=== PATIENT | male | born 1955 | race Caucasian/White ===

== ENCOUNTER 2018-12-03 08:34 | Observation (INO) ==
[2018-12-03] MEDS ORDERED: ASPIRIN PO ONE (08:50)
--- NOTE | 2018-12-03 09:04 | EKG Report ---
Test Performed on : 12/03/2018 08:44:19 AM Test Reason : CP Blood Pressure : / mmHG Vent. Rate : 064 BPM Atrial Rate : 064 BPM P-R Int : 144 ms QRS Dur : 092 ms QT Int : 400 ms P-R-T Axes : 038 051 095 degrees QTc Int : 412 ms Normal sinus rhythm. Normal ECG No previous ECGs available Unconfirmed Result
[2018-12-03 09:08] LABS: BASO# 0.03 X1000 (0.0-0.2); BASO% 0.4 % (0.0-0.8); EOS# 0.24 X1000 (0.0-0.7); EOS% 3.4 % (0.0-10.0); HEMATOCRIT 46.5 % (42.0-52.0); HEMOGLOBIN 15.8 g/dL (14.0-18.0); LYMPH# 2.01 X1000 (1.2-3.4); LYMPH% 28.3 % (20.5-51.1); MCH 30.5 PG (27-31); MCV 89.8 FL (81-99); MONO# 0.69 X1000 (0.11-0.59); MONO% 9.7 % (1.7-9.3); NEUT# 4.13 X1000 (1.4-6.5); NEUT% 58.2 % (42.2-75.2); PLT 291 X1000 (130-400); RBC 5.18 XMIL (4.7-6.1); RDW 13.6 % (11.5-14.5)
--- NOTE | 2018-12-03 09:20 | Diag Imaging Result Doc PS360 ---
EXAM: CHEST-2 VIEWS HISTORY: CP TECHNIQUE: Chest two views COMPARISON: None. FINDINGS: The lungs are well expanded. The heart is not enlarged. The vessels are not distended. There are no infiltrates. No pleural effusions. IMPRESSION: No acute abnormality. Electronically signed by Jg Calderon 12/03/2018 9:17 AM
[2018-12-03 09:22] LABS: AGAP 14; ALB/GLOB RATIO 1.6; ALBUMIN 4.6 g/dL (3.5-5.0); ALKALINE PHOSPHATASE 71 U/L (32-122); BUN 18 mg/dL (8-22); CALCIUM 9.7 mg/dL (8.8-10.2); CHLORIDE 104 mmol/L (98-107); CK PROFILE 113 U/L (24-204); COSMO 287; CREATININE 0.9 mg/dL (0.7-1.2); ESTIMATED GFR > 60; GLUCOSE 97 mg/dL (70-104); GOT 26 U/L (10-34); GPT 24 U/L (10-44); POTASSIUM 4.4 mmol/L (3.5-5.1); SODIUM 143 mmol/L (136-145); TCO2 25 mmol/L (25-35); TOTAL BILIRUBIN 0.23 mg/dL (0.20-1.00); TOTAL PROTEIN 7.5 g/dL (6.3-8.3)
[2018-12-03 09:35] LABS: INR 0.83; PROTIME 12.1 Seconds (11.0-16.0); PTT 33.9 Seconds (22.3-41.8)
[2018-12-03] MEDS ORDERED: MORPHINE IV ONE (09:54)
[2018-12-03] MEDS ORDERED: ZOFRAN IV ONE (09:54)
--- NOTE | 2018-12-03 09:54 | PROVIDER DOCUMENTATION ---
HPI-Chest Pain - General Chief Complaint: Chest Pain Stated Complaint: CHEST PAIN,LT ARM TINGLING,FILLING FAINT Time Seen by Provider: 12/03/18 09:47 Allergies/Adverse Reactions: Patient Allergies Allergy/AdvReac Type Severity Reaction Status Date / Time ibuprofen Allergy ANAPHYLAXIS Verified 12/03/18 09:44 Home Medications: Home Medication List Medication Instructions Recorded Confirmed Last Taken Type No Home Medications 11/02/13 12/03/18 Unknown History - History of Present Illness-CP Nature of Presenting Problem: 62 y/o WM c/o intermittent substernal CP for the past 2 weeks that returned today and became much worse. Pt states that he has had nausea, SOB, and that pain radiates to both arms and through to his back. Location: reports: substernal Chest Pain Radiation: reports: arms, back Quality of Pain: reports: aching Severity in ED: mild Onset/Duration: other (intermittent for the past 2 weeks) Timing: still present Context/Activities at Onset: reports: light activity Modifying Factors: improves with: nothing Associated Symptoms: reports: dizziness, nausea, shortness of breath (and light headed) Nitro Today/Relief: no nitro taken today Aspirin Treatment Today: provided at home Prior Chest Pain/Cardiac Workup: reports: no prior cardiac workup Similar Symptoms Previously?: Yes Recently Seen Here or By Another Healthcare Provider: No Review of Systems - Adult - REVIEW OF SYSTEMS - ADULT Constitutional: reports: no symptoms reported, see HPI Eyes: reports: no symptoms reported, see HPI Ears, Nose, Mouth & Throat: reports: no symptoms reported, see HPI Cardiovascular: reports: see HPI, chest pain Respiratory: reports: see HPI, shortness of breath Gastrointestinal: reports: no symptoms reported, see HPI Genitourinary: reports: no symptoms reported, see HPI Musculoskeletal: reports: no symptoms reported, see HPI Integumentary: reports: no symptoms reported, see HPI Neurological: reports: see HPI, dizziness/vertigo Psychiatric: reports: no symptoms reported, see HPI Endocrine: reports: no symptoms reported, see HPI Hematologic/Lymphatic: reports: no symptoms reported, see HPI Allergic/Immunologic: reports: no symptoms reported, see HPI All Other Systems: Reviewed and Negative Past History - Adult - PAST MEDICAL HISTORY-ADULT Review of Records: reports: Nursing Assessment Review, Medications Reviewed, Social history reviewed & non-contributory. Physical Exam-General - PHYSICAL EXAM-ADULT Initial Vital Signs Reviewed: Yes - CONSTITUTIONAL General Appearance: appears well, alert, no apparent distress - EYES Eyes: PERRL/EOMI - HEAD, EARS, NOSE, MOUTH & THROAT HENMT: normocephalic/atraumatic, moist mucous membranes - NECK Neck: non-tender, full range of motion, supple, normal inspection - RESPIRATORY Respiratory: chest non-tender, lungs clear, normal breath sounds, no pleuratic chest pain, no respiratory distress, no accessory muscle use - CARDIOVASCULAR Cardiovascular: normal peripheral pulses, regular rate, rhythm, no edema, no gallop, no JVD, no murmur - GASTROINTESTINAL (ABDOMEN) Abdominal Exam: normal bowel sounds, non tender, soft, no organomegaly, no pulsatile mass - LYMPHATIC Lymphatic: no adenopathy - MUSCULOSKELETAL Back Exam: normal inspection, no CVA tenderness, no vertebral tenderness Extremity: normal range of motion, non-tender, normal gait, normal inspection, no pedal edema, no calf tenderness, normal capillary refill - SKIN Integumentary: normal color, normal turgor - NEUROLOGIC Neurologic: junior designer II-XII nml as tested, grossly normal, no motor/sensory deficits - PSYCHIATRIC Psych/Mental Status: normal mood/affect, normal thought content, normal thought process, oriented x 3 - HEART Score HEART Score: History: Slightly Suspicious HEART Score: ECG: Normal HEART Score: Age: 45-65 Years HEART Score: Risk Factors for Atherosclerotic Disease: 1 or 2 Risk Factors HEART Score: Troponin: < or = Normal Limit Total HEART Score:: 2 Progress - PLAN OF CARE/RESULTS Progress/Plan/Lab Results: Vital Signs - 8 hr 12/03/18 08:44 12/03/18 09:39 12/03/18 10:07 Temperature 98.0 F Pulse Rate 73 63 54 L Respiratory Rate 18 18 17 Blood Pressure 146/91 153/103 157/90 O2 Sat by Pulse Oximetry 98 98 97 12/03/18 10:10 12/03/18 10:20 12/03/18 10:30 Temperature Pulse Rate 50 L 55 L 58 L Respiratory Rate 14 13 18 Blood Pressure O2 Sat by Pulse Oximetry 98 95 97 12/03/18 10:33 12/03/18 10:40 12/03/18 10:50 Temperature Pulse Rate 54 L 54 L 55 L Respiratory Rate 16 15 18 Blood Pressure 115/69 O2 Sat by Pulse Oximetry 96 96 97 12/03/18 11:03 12/03/18 11:33 12/03/18 11:49 Temperature Pulse Rate 51 L 57 L 53 L Respiratory Rate 14 20 17 Blood Pressure 107/66 116/67 114/78 O2 Sat by Pulse Oximetry 97 97 96 12/03/18 11:52 Temperature 97.9 F Pulse Rate Respiratory Rate Blood Pressure O2 Sat by Pulse Oximetry Laboratory Results - last 24 hr 12/03/18 12/03/18 12/03/18 08:50 08:50 08:50 WBC 7.10 RBC 5.18 Hgb 15.8 Hct 46.5 MCV 89.8 MCH 30.5 MCHC 34.0 RDW Std Deviation 13.6 Plt Count 291 MPV 9.0 Immature Gran % (Auto) 0.0 Neut % (Auto) 58.2 Lymph % (Auto) 28.3 Barber % (Auto) 9.7 H Eos % (Auto) 3.4 Baso % (Auto) 0.4 Immature Gran # (Auto) 0.00 Neut # (Auto) 4.13 Lymph # (Auto) 2.01 Barber # (Auto) 0.69 H Eos # (Auto) 0.24 Baso # (Auto) 0.03 PT INR PTT (Actin FS) D-Dimer, Quantitative Sodium 143 Potassium 4.4 Chloride 104 Carbon Dioxide 25 Anion Gap 14 BUN 18 Creatinine 0.9 Estimated GFR/1.73 m2 > 60 BUN/Creatinine Ratio 20 Glucose 97 Calculated Osmolality 287 Calcium 9.7 Total Bilirubin 0.23 AST 26 ALT 24 Alkaline Phosphatase 71 Creatine Kinase 113 Troponin T Auy-A-Gfedzbbvxjp Pept 157 Total Protein 7.5 Albumin 4.6 Globulin 2.9 Albumin/Globulin Ratio 1.6 12/03/18 12/03/18 12/03/18 08:50 08:50 08:50 WBC RBC Hgb Hct MCV MCH MCHC RDW Std Deviation Plt Count MPV Immature Gran % (Auto) Neut % (Auto) Lymph % (Auto) Barber % (Auto) Eos % (Auto) Baso % (Auto) Immature Gran # (Auto) Neut # (Auto) Lymph # (Auto) Barber # (Auto) Eos # (Auto) Baso # (Auto) PT 12.1 INR 0.83 PTT (Actin FS) 33.9 D-Dimer, Quantitative < 0.27 Sodium Potassium Chloride Carbon Dioxide Anion Gap BUN Creatinine Estimated GFR/1.73 m2 BUN/Creatinine Ratio Glucose Calculated Osmolality Calcium Total Bilirubin AST ALT Alkaline Phosphatase Creatine Kinase Troponin T < 0.010 Xdz-N-Lmtjscgmlah Pept Total Protein Albumin Globulin Albumin/Globulin Ratio Orders Category Date Time Status Cardiac Monitoring DIRECTED Care 12/03/18 08:50 Active Oxygen Therapy- ED Nursing DIRECTED Care 12/03/18 08:50 Active Saline Loc NOW Care 12/03/18 08:50 Active CHEST-2 VIEWS [RAD] Stat Exams 12/03/18 08:50 Completed CBC WITH ELECTRONIC DIFF [HEME] Stat Lab 12/03/18 08:50 Completed CK PROFILE [SP CHEM] Stat Lab 12/03/18 08:50 Completed COMPREHENSIVE METABOLIC PANEL [CHEM] Stat Lab 12/03/18 08:50 Completed D-DIMER [COAG] Stat Lab 12/03/18 08:50 Completed PRO B-NATRIURETIC PEPTIDE Stat Lab 12/03/18 08:50 Completed PROTIME WITH INR [COAG] Stat Lab 12/03/18 08:50 Completed PTT [COAG] Stat Lab 12/03/18 08:50 Completed TROPONIN T Stat Lab 12/03/18 08:50 Completed URINALYSIS [URINALYSIS] Stat Lab 12/03/18 09:47 Uncollected Aspirin Med 12/03/18 08:50 Discontinued 325 mg PO NOW ONE Morphine Med 12/03/18 09:54 Discontinued 2 mg IV NOW ONE Ondansetron [Zofran] Med 12/03/18 09:54 Discontinued 4 mg IV NOW ONE CP/SOB/Palp >45 yrs of Age Stat Oth 12/03/18 08:50 Ordered EKG [EKG] Stat Ther 12/03/18 08:50 Draft EKG [EKG] Stat Ther 12/03/18 09:48 Ordered Result Diagrams: 12/03/18 08:50 12/03/18 08:50 - CONSULTS/PCP/HOSPITALIST Notification #1 *Consult/PCP/Hospitalist*: Rosaura antoine Hospitalist Time Discussed: 11:53 Consult Disposition: Will see in ED, Admit Departure - Departure Date of Disposition Decision: 12/03/18 Time of Disposition Decision: 11:53 DIAGNOSIS: Chest pain, Elevated blood pressure reading Disposition: ADMITTED INPATIENT 09 Certified Medical Emergency: Emergent Condition: Fair Referrals and Follow-Ups: Quincy De La Paz [Primary Care Provider] - - Critical Care Note This patient required my direct & personal management of CC.: No Attestation - Physician/ DUNAE Attestation Patient care was provided by Advanced Practice Provider:: No The physician spent face to face time with patient:: Yes Advanced Practice Provider documentation review:: Supervising physician onsite and consulted in the evaluation and care of this patient. The physician did have a face to face encounter with the patient.
--- NOTE | 2018-12-03 10:52 | ED EKG INTERP ---
This chart was entered by Dunia Zayas Scribe, acting as scribe for Luis Armando Grimaldo MD. EKG Interpretation - EKG Time of EKG reading by physician:: 08:44 EKG Read and Signed by:: Luis Armando Grimaldo EKG Interpretation (*Must complete 3 of following elements*): Normal Rate: 64 Rhythm: NSR [place]: normal QRS: normal NC Interval: normal ST Wave: normal Attestation - Physician/ DUANE Attestation Patient care was provided by Advanced Practice Provider:: No The physician spent face to face time with patient:: Yes Advanced Practice Provider documentation review:: Supervising physician onsite and consulted in the evaluation and care of this patient. The physician did have a face to face encounter with the patient. This chart was documented by the indicated scribe, (Dunia Zayas Scribe) and accurately reflects the services I performed and decisions made by me, Luis Armando Grimaldo MD, as attested by the provider's signature.
[2018-12-03] MEDS ORDERED: TYLENOL PO PRN (12:15)
[2018-12-03] MEDS ORDERED: ZOFRAN IV PRN (12:15)
[2018-12-03 13:56] LABS: URINE SOURCE VOIDED
[2018-12-03 14:00] LABS: BILIRUBIN URINE NEGATIVE (NEGATIVE); BLOOD URINE NEGATIVE (NEGATIVE); COLOR YELLOW; GLUCOSE URINE NEGATIVE (NEGATIVE); KETONE URINE NEGATIVE (NEGATIVE); LEUKOCYTES URINE NEGATIVE (NEGATIVE); NITRITE URINE NEGATIVE (NEGATIVE); PROTEIN URINE TRACE mg/dL (NEGATIVE); SP GRAVITY URINE 1.034; TURBIDITY URINE CLEAR (CLEAR); UR EPITHELIAL CELLS <10 /HPF (<10); URINE BACTERIA NEGATIVE /HPF; URINE RBC <10 /HPF (<10); URINE WBC <10 /HPF (<10); UROBILINOGEN URINE NORMAL (NORMAL)
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
--- NOTE | 2018-12-03 16:45 | ECHO REPORT ---
ORDER DATE: 12/03/2018 INTERPRETING PHYSICIAN: Tez Cervantes MD ECHOCARDIOGRAPHIC MEASUREMENTS: 1. Interventricular septum 1.0. 2. Left ventricular posterior wall 1.0. 3. Diastolic diameter 4.4 4. Left atrium 3.8. SUMMARY OF THE TWO-DIMENSIONAL IMAGIN. Aortic valve leaflets were trileaflet. 2. Pulmonic valve was normal. There is trace pulmonary regurgitation. 3. Tricuspid valve was normal. 4. Mitral valve was normal. 5. Normal left ventricular cavity size. Estimated ejection fraction of 60%. 6. There is mild tricuspid regurgitation. Peak velocity across the tricuspid valve was 2.2 m/sec. 7. There is mild tricuspid regurgitation. 8. Mild mitral regurgitation. 9. Peak velocity across the aortic valve less than 2 m/sec. By Doppler studies, there is no aortic stenosis or regurgitation. 10. There is no pericardial effusion or obvious intracardiac mass or thrombus seen. cc: Tez Cervantes MD
[2018-12-03] MEDS ORDERED: MORPHINE IV PRN (17:18)
[2018-12-04 04:23] LABS: BASO# 0.02 X1000 (0.0-0.2); BASO% 0.3 % (0.0-0.8); EOS% 4.2 % (0.0-10.0); HEMATOCRIT 42.9 % (42.0-52.0); HEMOGLOBIN 14.5 g/dL (14.0-18.0); IMM GRAN# 0.02 X1000 (0.0-0.04); IMM GRAN% 0.3 % (0.0-0.5); LYMPH# 2.09 X1000 (1.2-3.4); LYMPH% 29.1 % (20.5-51.1); MCH 30.4 PG (27-31); MCHC 33.8 g/dL (33-37); MCV 89.9 FL (81-99); MONO% 8.3 % (1.7-9.3); NEUT# 4.16 X1000 (1.4-6.5); NEUT% 57.8 % (42.2-75.2); PLT 243 X1000 (130-400); RBC 4.77 XMIL (4.7-6.1); RDW 13.3 % (11.5-14.5); WBC 7.19 X1000 (4.8-10.8)
[2018-12-04 04:41] LABS: HEMOGLOBIN A1C 5.1 % (4.8-6.0)
[2018-12-04 05:04] LABS: AGAP 10; BUN 19 mg/dL (8-22); CALCIUM 8.8 mg/dL (8.8-10.2); CHLORIDE 101 mmol/L (98-107); CHOLESTEROL 210 mg/dL (0-200); COSMO 276; CREATININE 0.9 mg/dL (0.7-1.2); ESTIMATED GFR > 60; GLUCOSE 100 mg/dL (70-104); HDL 54 mg/dL (35-55); LDL 122 mg/dL; POTASSIUM 4.2 mmol/L (3.5-5.1); SODIUM 137 mmol/L (136-145); TCO2 26 mmol/L (25-35); TRIGLYCERIDES 169 mg/dL (39-160); VLDL 34 mg/dL
[2018-12-04] MEDS ORDERED: PRILOSEC PO SCH (07:00)
--- NOTE | 2018-12-04 07:21 | EKG Report ---
Test Performed on : 12/04/2018 07:05:41 AM Test Reason : CP FU Blood Pressure : / mmHG Vent. Rate : 048 BPM Atrial Rate : 048 BPM P-R Int : 134 ms QRS Dur : 088 ms QT Int : 458 ms P-R-T Axes : 043 053 092 degrees QTc Int : 409 ms Sinus bradycardia. Nonspecific T wave abnormality Abnormal ECG When compared with ECG of 03-DEC-2018 08:44, (Unconfirmed) No significant change was found Confirmed by Sunny LANDEROS, Kalpesh Armenta ([id number]) on 12/04/2018 6:39:14 PM
--- NOTE | 2018-12-04 07:26 | Diag Imaging Result Doc PS360 ---
EXAM: CHEST-PORTABLE 12/04/2018 HISTORY: Chest Pain TECHNIQUE: AP portable at 0553 COMMENT: The inspiration is suboptimal. Compared to 12/03/2018 there has been no significant change in the appearance the chest. IMPRESSION: Stable chest. Electronically signed by Maurizio Rosenbaum 12/04/2018 7:23 AM
[2018-12-04 15:52] VITALS: BP 102/50
--- NOTE | 2018-12-04 15:58 | Diag Imaging Result Document ---
PROCEDURE NAME: MYOCARDIAL PERF SCAN, STR/REST - 12/04/2018 STUDY: Rest/stress exercise treadmill myocardial perfusion study. INDICATION: Chest pain. REQUESTING PHYSICIAN: Dr. Joshi. DESCRIPTION: The patient came into the nuclear lab and received a rest injection of technetium 99 sestamibi 10.8 mCi. Multiple tomographic views of the cardiac structures were obtained at rest. Subsequently the patient underwent a treadmill exercise protocol. At peak exercise injected with technetium 99 sestamibi 33.8 mCi. Multiple tomographic views of the cardiac structures were obtained following the completion of the exercise protocol. SUMMARY OF THE ELECTROCARDIOGRAPHIC PORTION OF THE STUDY: Resting electrocardiogram shows sinus rhythm with a rate of 50 beats per minute. Resting blood pressure 116/73. The resting electrocardiogram shows sinus bradycardia with no ischemic ST-T changes. The patient walked on the treadmill 10 minutes and 16 seconds. The patient completed three stages of the [place] protocol and walked for 1 minute and 16 seconds into the fourth stage. The patient achieved a maximum heart rate of 162 beats per minute, representing 101% of maximum predicted heart rate for her age. Peak blood pressure 142/55. Peak exercise ECG showed sinus tachycardia without any ischemic changes. ECG shows sinus tachycardia with a one mm ST segment depression horizontal to the upsloping in the lead V5 and less than one mm in lead V6, about one mm in leads 3 and AVF. Following the completion of the test and within [address] abnormality resolved. The patient reported chest tightness of mild severity associated with mild dyspnea. Late in the recovery phase, no significant abnormalities were noted. In summary, the electrocardiographic response to exercise is somewhat suspicious for effort induced ischemia. There was ST segment depression of at least one mm downsloping in lead V5 and also 3 and AVF. This resolved very quickly. It could represent a false positive response. The workload achieved is 12.1 METS. The exercise capacity is 22% above average for age and gender. The blood pressure response was physiologic. The level of stress based on the double product of peak systolic blood pressure x peak heart rate is acceptable, in the range of 23,000. SUMMARY OF THE MYOCARDIAL PERFUSION PORTION OF THE STUDY: Poststress tomographic views of the left ventricle showed essentially normal myocardial perfusion. There is no convincing evidence of any postexercise defect. The rest images showed normal perfusion. The polar plots showed no evidence of any inducible ischemia nor myocardial scar. Gated SPECT shows normal left ventricular systolic function with ejection fraction of 64%. No wall motion abnormality is noted. The lung/heart ratio is normal. The TID is elevated at 1.12. The significance of that is unclear. On review of the perfusion images, there is a very subtle increase in the chamber size in the apical portion of the left ventricle. SUMMARY: This study shows 1. Mildly abnormal poststress myocardial perfusion scan. There is scintigraphic suggestion of effort induced ischemia, however this could represent a false positive. 2. Essentially normal poststress myocardial perfusion scan. There is no convincing evidence of effort induced myocardial ischemia. 3. Normal left ventricular systolic function with ejection fraction of 64% with normal ventricular volumes. No wall motion abnormality. Clinical correlation is strongly recommended. Consideration may be given at obtaining a coronary calcium score in case of doubt or a coronary CTA. At this point in time, based on the results of this test and if no ongoing chest pain is present, the patient could be probably referred to the outpatient Cardiology clinic for followup. cc: Jacques Pina MD
[2018-12-04] MEDS ORDERED: LIPITOR PO SCH (21:00)
--- NOTE | 2018-12-05 12:15 | DISCHARGE SUMMARY ---
ADMISSION DATE: 12/03/2018 DISCHARGE DATE: 12/04/2018 DISCHARGE DISPOSITION: Home with family. DISCHARGE CONDITION: Alert and oriented x3. Denies any chest pain or shortness of breath. 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 I also provided them options about getting a CT scan angiography and/or a cardiology evaluation to see if he would need a formal coronary angiography. However, patient and his decided that they would rather be seen by a arm rest builder that the patient's is working with. I will provide them a prescription of aspirin and statin. DISCHARGE DIAGNOSIS: Chest pain with pending workup for coronary artery disease, likely noncardiac in origin. However, not completely ruled out. OTHER DIAGNOSES: 1. Positive coronary artery disease and myocardial infarction history in mother and father. 2. Hyperlipidemia. VITALS AT THE TIME OF DISCHARGE: Temperature 98.1 degrees, pulse 55, respiratory rate 18, blood pressure 102/50, and saturating 94% on room air. PHYSICAL EXAMINATION: General: Does not appear in any acute distress. Oral cavity is moist. Air entry bilaterally equal. No wheezing, rhonchi or crackles. S1, S2 normal. No murmur or gallop. Abdomen: Soft and nontender. Extremities: No lower extremity edema. No jugular venous distention. DISCHARGE MEDICATIONS: 1. Aspirin 81 mg daily. 2. Atorvastatin 10 mg at nighttime. SIGNIFICANT LABS DURING HOSPITAL ADMISSION: On discharge, hemoglobin 14.5, platelet of 243,000, WBC of 7.1, and INR of 0.8. D-dimer was undetectable. BUN of 19, creatinine of 0.9. Troponin's was negative 5 times. His TSH was slightly high to 4.3. His total cholesterol was 210. Urinalysis is unremarkable. No new microbiological data. IMAGIN. On admission, chest x-ray did not have any acute cardiopulmonary process. 2. Echocardiogram had detected ejection fraction of 60% without any pericardial effusion, intracardiac mass, or thrombus. 3. Myocardial perfusion scan with nuclear medicine had suggested mildly abnormal post-stress myocardial perfusion scan with scintigraphic suggestion of exertion induced ischemia. However, this could represent a false-positive. Essentially, otherwise normal post- stress myocardial perfusion scan. He had normal left ventricular systolic function with ejection fraction of 64%. Normal ventricular volumes without any motion abnormality. As per Cardiology, CT scan coronary angiography or a coronary calcium score were advised. However, patient and family decided to see a arm rest builder as an outpatient. HOSPITAL COURSE SUMMARY: Mr. Renae is a 62 year old man without any significant past medical history, who has been living generally healthy lifestyle with regular physical activity and Mediterranean diet, who came in with chief complaints of chest pain in the substernal region. The patient's chest pain had apparently started 2 weeks ago when [place] was at the airport, and he was going to [place] for a trip. After coming from the trip, he kept on having intermittent episodes of chest pain. It was sharp to sometimes dull in nature with involvement of left upper extremity tingling so he presented to the emergency room as [facility] was close to his workplace. His troponin's were unremarkable. EKG did not have acute ST changes. Echocardiogram was also unremarkable. He underwent nuclear medicine stress test which had normal ejection fraction without regional wall motion abnormality. There was an instance where he had [address]-segment depression horizontal to the sloping in the lead V5, and less than 1 mm in lead V6, and about 1 mm in lead 3 and AVF. He was also having some chest discomfort during that time, which resolved at the end of the stress test and it was thought it could be a false-positive. The patient was however advised to get a CT scan coronary angiography while inside the hospital, and probably getting a cardiology evaluation inpatient to further look into that. However, at the time of evaluation, the patient was not having any chest pain. 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 Plan of care were discussed with him. All of their questions have been answered. TIME SPENT: Less than 30 minutes were spent in discharging this patient. cc: MD LIV Wells
== END 2018-12-04 18:48 | disposition home or self-care (01) ==
LOC: ED 08:34 → DIRADM 08:34 → SUATTDRO 08:35 → EDIPHOLD 12:08 → 3N 17:36
PROVIDERS: ATTEND Internal Medicine
CPT/HCPCS: 71010; 71020; 71045; 71046; 78452; 80048; 80053; 80061; 81001; 82550; 83036; 83880; 84443; 84484; 85025; 85379; 85610; 85730; 93005; 93010; 93017; 93306; 96374; 99285; A9270; A9500; J2270; J2405